=== PATIENT | female | born 1990 | race American Indian/Alaskan Native ===

== ENCOUNTER 2017-07-21 00:28 | Emergency (ER) | payer SELFPAY ==
[2017-07-21] MEDS ORDERED: TYLENOL ONE (01:23)
[2017-07-21 01:28] VITALS: BP 102/67
[2017-07-21 02:00] LABS: Basophils % (Auto) 0.4 % (0.0-1.8); Eosinophils # (Auto) 0.1 K/mm3 (0.0-0.4); Eosinophils % (Auto) 0.6 % (0.0-4.3); Hematocrit 37.3 % (30.3-42.9); Hemoglobin 11.8 gm/dl (10.1-14.3); Lymphocytes # (Auto) 2.8 K/mm3 (1.2-5.4); Lymphocytes % (Auto) 27.6 % (13.4-35.0); Mean Corpuscular HGB Conc 32 % (30-34); Monocytes # (Auto) 0.6 K/mm3 (0.0-0.8); Platelet Count 336 K/mm3 (140-440)
[2017-07-21 02:02] LABS: Mean Corpuscular Hemoglobin 21 pg (28-32); Mean Corpuscular Volume 67 fl (79-97)
[2017-07-21 02:16] LABS: Alanine Aminotransferase 15 units/L (7-56); Albumin 4.1 g/dL (3.9-5); BUN/Creatinine Ratio 20; Blood Urea Nitrogen 10 mg/dL (7-17); Calcium 8.5 mg/dL (8.4-10.2); Hemolysis Index 0; Lipase 16 units/L (13-60)
== END 2017-07-21 03:03 | disposition left against medical advice (07) ==
LOC: ED 00:28
DX: R07.9 Chest pain, unspecified (principal); Z53.21 Procedure and treatment not carried out due to patient leaving prior to being seen by health care provider
CPT/HCPCS: 36415; 80053; 83690; 84484; 84703; 85025; 93005; 93010

== ENCOUNTER 2018-12-31 10:31 | Emergency (ER) | payer MEDICAID ==
[2018-12-31 11:29] LABS: Bacteria,Urine 1+ /HPF (Negative); Bilirubin,Urine NEG (Negative); Blood,Urine NEG (Negative); Color,Urine Yellow (Yellow); Protein,Urine <15 mg/dL mg/dL (Negative); Urobilinogen,Urine < 2.0 mg/dL (<2.0)
[2018-12-31 11:30] LABS: HCG Qualitative,Urine Negative (Negative)
[2018-12-31 11:41] LABS: Basophils # (Auto) 0.1 K/mm3 (0.0-0.1); Basophils % (Auto) 0.6 % (0.0-1.8); Eosinophils # (Auto) 0.1 K/mm3 (0.0-0.4); Eosinophils % (Auto) 0.7 % (0.0-4.3); Lymphocytes # (Auto) 2.6 K/mm3 (1.2-5.4); Mean Corpuscular HGB Conc 31 % (30-34); Mean Corpuscular Volume 71 fl (79-97); Monocytes # (Auto) 0.5 K/mm3 (0.0-0.8); Monocytes % (Auto) 5.3 % (0.0-7.3); Platelet Count 324 K/mm3 (140-440); Red Blood Count 5.36 M/mm3 (3.65-5.03); Red Cell Distribution Width 14.6 % (13.2-15.2)
[2018-12-31 11:42] LABS: Hematocrit 38.2 % (30.3-42.9); Hemoglobin 11.6 gm/dl (10.1-14.3)
[2018-12-31 12:22] LABS: Alanine Aminotransferase 12 units/L (7-56); Albumin 4.3 g/dL (3.9-5); BUN/Creatinine Ratio 35; Blood Urea Nitrogen 14 mg/dL (7-17); Calcium 9.2 mg/dL (8.4-10.2); Hemolysis Index 1
[2018-12-31] MEDS ORDERED: ALUM-MAG HYDROXIDE-SIMETHICONE 200-200-20MG/5ML ORAL LIQD 30 ML PO ONE (13:11)
[2018-12-31] MEDS ORDERED: HYDROcodone/ACETAMINOPHEN 5-325 MG TAB PO ONE (13:12)
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
--- NOTE | 2018-12-31 14:30 | Cat Scan Report ---
CT ABDOMEN AND PELVIS WITHOUT CONTRAST INDICATION / CLINICAL INFORMATION: left flank pain. TECHNIQUE: Axial CT images were obtained through the abdomen and pelvis without IV contrast. All CT scans at [facility] location are performed using CT dose reduction for ALARA by means of automated exposure control. COMPARISON: CT scan dated 02/23/2018 FINDINGS: LOWER CHEST: No significant abnormality. LIVER: No significant abnormality. GALLBLADDER: No significant abnormality. BILE DUCTS: No significant abnormality. PANCREAS: No significant abnormality. SPLEEN: No significant abnormality. ADRENALS: No significant abnormality. RIGHT KIDNEY and URETER: No significant abnormality. LEFT KIDNEY and URETER: No significant abnormality. STOMACH and SMALL BOWEL: No significant abnormality. COLON: There is a moderate amount of stool noted throughout the colon APPENDIX: No significant abnormality. PERITONEUM: No free fluid. No free air. No fluid collection. LYMPH NODES: No significant adenopathy. AORTA and ARTERIES: No significant abnormality. IVC and VEINS: No significant abnormality. URINARY BLADDER: No significant abnormality. REPRODUCTIVE ORGANS: Dermoid is again noted in the left ovary. This appears unchanged exam. Uterus ap pears unchanged ADDITIONAL FINDINGS: None. SKELETAL SYSTEM: No significant abnormality. IMPRESSION: 1. Left ovarian dermoid appears unchanged compared to previous study. 2. Moderate amount stool in the colon raising the possibility of constipation. 3. There is no obstruction, inflammation, or free air. There are no abnormal collections. There are n o renal or ureteral calculi. There is no hydronephrosis. Signer Name: Ted Spangler MD Signed: 12/31/2018 2:25 PM Workstation Name: [id number]
[2018-12-31 15:14] VITALS: BP 107/66
== END 2018-12-31 15:15 | disposition home or self-care (01) ==
LOC: ED 10:31
DX: N83.202 Unspecified ovarian cyst, left side (principal); K59.00 Constipation, unspecified; N30.90 Cystitis, unspecified without hematuria; G43.909 Migraine, unspecified, not intractable, without status migrainosus; Z88.5 Allergy status to narcotic agent; Z79.899 Other long term (current) drug therapy
CPT/HCPCS: 36415; 74176; 80053; 81001; 81025; 85025; 99284

== ENCOUNTER 2019-01-14 22:23 | Emergency (ER) | payer MEDICAID ==
[2019-01-14 22:37] VITALS: BP 111/71
[2019-01-15] MEDS ORDERED: BANOPHEN PO ONE (00:06)
[2019-01-15] MEDS ORDERED: SOLU-Medrol IM ONE (00:06)
[2019-01-15] MEDS ORDERED: PEPCID PO ONE (00:06)
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
== END 2019-01-15 01:26 | disposition home or self-care (01) ==
LOC: ED 22:23
DX: L50.8 Other urticaria (principal); L29.9 Pruritus, unspecified; Z87.442 Personal history of urinary calculi; Z79.899 Other long term (current) drug therapy; Z91.038 Other insect allergy status; Z88.6 Allergy status to analgesic agent
CPT/HCPCS: 96372; 99282; J2930; Q0163

== ENCOUNTER 2019-04-28 08:56 | Emergency (ER) | payer MEDICAID ==
[2019-04-28] MEDS ORDERED: ACETAMINOPHEN 325 MG TAB PO ONE (09:05)
[2019-04-28] MEDS ORDERED: ACETAMINOPHEN 325 MG/10.15 ML ORAL LIQD UNIT DOSE PO ONE (09:07)
[2019-04-28] MEDS ORDERED: ACETAMINOPHEN 325 MG/10.15 ML ORAL LIQD UNIT DOSE ONE (09:10)
[2019-04-28] MEDS ORDERED: SODIUM CHLORIDE 0.9% 1000 ML 1,000 ML IV ONE (10:25)
[2019-04-28] MEDS ORDERED: ONDANSETRON 4 MG/2 ML INJ IV ONE (10:25)
[2019-04-28] MEDS ORDERED: MORPHINE 4 MG/1 ML INJ IV ONE ×2 (10:25→12:21)
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
[2019-04-28 11:26] LABS: Basophils % (Auto) 0.4 % (0.0-1.8); Eosinophils % (Auto) 0.2 % (0.0-4.3); Hematocrit 34.7 % (30.3-42.9); Hemoglobin 10.9 gm/dl (10.1-14.3); Lymphocytes # (Auto) 0.5 K/mm3 (1.2-5.4); Lymphocytes % (Auto) 4.3 % (13.4-35.0); Mean Corpuscular HGB Conc 31 % (30-34); Monocytes # (Auto) 0.9 K/mm3 (0.0-0.8); Monocytes % (Auto) 8.1 % (0.0-7.3); Platelet Count 279 K/mm3 (140-440); Red Blood Count 4.97 M/mm3 (3.65-5.03); Red Cell Distribution Width 14.1 % (13.2-15.2)
[2019-04-28 11:28] LABS: Mean Corpuscular Volume 70 fl (79-97)
[2019-04-28 11:49] LABS: Alanine Aminotransferase 11 units/L (7-56); Albumin 3.9 g/dL (3.9-5); BUN/Creatinine Ratio 17; Blood Urea Nitrogen 10 mg/dL (7-17); Calcium 9.1 mg/dL (8.4-10.2); Hemolysis Index 3
[2019-04-28 12:28] LABS: Bacteria,Urine 1+ /HPF (Negative); Bilirubin,Urine NEG (Negative); Blood,Urine SM (Negative); Color,Urine Yellow (Yellow); Mucus,Urine 2+ /HPF
[2019-04-28 12:29] LABS: HCG Qualitative,Urine Negative (Negative); WBC,Urine > 182.0 /HPF (0.0-6.0)
[2019-04-28] MEDS ORDERED: cefTRIAXone/NS 2 GM/100 ML 2 GM/100 ML BAG IV ONE (12:35)
--- NOTE | 2019-04-28 13:58 | Cat Scan Report ---
CT ABDOMEN AND PELVIS WITHOUT CONTRAST INDICATION: Right lower quadrant and right flank pain. Fever. History of kidney stones. COMPARISON: CT abdomen and pelvis without contrast from 12/31/2018. TECHNIQUE: Axial, coronal and sagittal CT imaging of the abdomen and pelvis was performed without co ntrast. Lack of intravenous contrast limits evaluation of the vascular and solid organs. All CT sca ns at this location are performed using CT dose reduction for ALARA by means of automated exposure co ntrol. FINDINGS: LOWER CHEST: No significant abnormality. LIVER: No significant abnormality. BILIARY: No significant abnormality. PANCREAS: No significant abnormality. SPLEEN: No significant abnormality. ADRENALS: No significant abnormality. KIDNEYS AND URETERS: No significant abnormality. GI TRACT: No significant abnormality of the stomach, small bowel or colon. Unremarkable appendix. PERITONEUM: No free fluid. No free air. No fluid collection. LYMPH NODES: No significant adenopathy. VASCULATURE: No significant abnormality. URINARY BLADDER: No significant abnormality. REPRODUCTIVE ORGANS: A left ovarian dermoid has not significantly changed. No additional significant abnormality. ADDITIONAL FINDINGS: None. SKELETAL SYSTEM: No significant abnormality. IMPRESSION: 1. No acute abnormality of the abdomen or pelvis. 2. No renal stones are identified. 3. Additional findings as above. Signer Name: Damian Shin MD Signed: 04/28/2019 1:54 PM Workstation Name: [id number]
[2019-04-28 14:23] VITALS: BP 105/69
== END 2019-04-28 14:35 | disposition home or self-care (01) ==
LOC: ED 08:56
DX: N10 Acute pyelonephritis (principal); G43.909 Migraine, unspecified, not intractable, without status migrainosus; Z79.899 Other long term (current) drug therapy; Z88.6 Allergy status to analgesic agent
CPT/HCPCS: 36415; 74176; 80053; 81001; 81025; 83690; 85025; 87400; 96361; 96365; 96375; 96376; 99284; J0696; J2270; J2405; J7030

== ENCOUNTER 2019-04-29 07:01 | Emergency (ER) | payer MEDICAID ==
[2019-04-29] MEDS ORDERED: ONDANSETRON 4 MG/2 ML INJ IV ONE (08:04)
[2019-04-29] MEDS ORDERED: MORPHINE 2 MG/1 ML INJ IV ONE (08:04)
[2019-04-29] MEDS ORDERED: SODIUM CHLORIDE 0.9% 1000 ML 1,000 ML IV ONE (08:04)
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
[2019-04-29 09:55] VITALS: BP 105/73
== END 2019-04-29 10:29 | disposition home or self-care (01) ==
LOC: ED 07:01
DX: B34.9 Viral infection, unspecified (principal); N30.90 Cystitis, unspecified without hematuria; G43.909 Migraine, unspecified, not intractable, without status migrainosus; Z98.890 Other specified postprocedural states; Z88.6 Allergy status to analgesic agent; Z79.899 Other long term (current) drug therapy
CPT/HCPCS: 96361; 96374; 96375; 99282; J2270; J2405; J7030

== ENCOUNTER 2019-06-05 16:15 | Emergency (ER) | payer MEDICAID ==
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
[2019-06-05 17:26] LABS: Basophils % (Auto) 0.5 % (0.0-1.8); Eosinophils % (Auto) 0.2 % (0.0-4.3); Hematocrit 39.3 % (30.3-42.9); Hemoglobin 12.1 gm/dl (10.1-14.3); Lymphocytes # (Auto) 2.4 K/mm3 (1.2-5.4); Lymphocytes % (Auto) 25.1 % (13.4-35.0); Mean Corpuscular HGB Conc 31 % (30-34); Monocytes # (Auto) 0.6 K/mm3 (0.0-0.8); Monocytes % (Auto) 6.1 % (0.0-7.3); Platelet Count 322 K/mm3 (140-440); Red Blood Count 5.64 M/mm3 (3.65-5.03)
[2019-06-05 17:29] LABS: Mean Corpuscular Volume 70 fl (79-97)
[2019-06-05 17:38] LABS: Alanine Aminotransferase 11 units/L (7-56); Albumin 4.5 g/dL (3.9-5); BUN/Creatinine Ratio 24; Blood Urea Nitrogen 12 mg/dL (7-17); Calcium 9.4 mg/dL (8.4-10.2); Hemolysis Index 6
[2019-06-05 17:39] LABS: Bilirubin,Direct < 0.2 mg/dL (0-0.2)
[2019-06-05] MEDS ORDERED: HYDROcodone/ACETAMINOPHEN 5-325 MG TAB PO ONE (18:23)
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
[2019-06-05 20:14] VITALS: BP 119/80
== END 2019-06-05 20:14 | disposition home or self-care (01) ==
LOC: ED 16:15
DX: S39.012A Strain of muscle, fascia and tendon of lower back, initial encounter (principal); S16.1XXA Strain of muscle, fascia and tendon at neck level, initial encounter; S20.212A Contusion of left front wall of thorax, initial encounter; G43.909 Migraine, unspecified, not intractable, without status migrainosus; Z98.890 Other specified postprocedural states; Z79.899 Other long term (current) drug therapy; Z88.6 Allergy status to analgesic agent; W30.81XA Contact with agricultural transport vehicle in stationary use, initial encounter; Y93.89 Activity, other specified; Y92.410 Unspecified street and highway as the place of occurrence of the external cause; Y99.8 Other external cause status
CPT/HCPCS: 36415; 72040; 72100; 80048; 80076; 83690; 84703; 85025

== ENCOUNTER 2019-09-30 17:01 | Emergency (ER) | payer MEDICAID ==
[2019-09-30 17:25] VITALS: BP 117/65
--- NOTE | 2019-09-30 18:35 | Emergency Department Report ---
Chief Complaint: Allergic Reaction Stated Complaint: ALLERGIC REACTION - HPI History of Present Illness: 28-year-old -Luxembourger female presents to the emergency room complaining of a rash under her breasts bilateral right worse than left hand red lesions on her lower extremities that started today. Patient reports that the itching and painful. - Exam Vital Signs: Vital Signs 09/30/19 17:23 Temperature 98.8 F Pulse Rate 86 Respiratory 16 Rate Blood Pressure 117/65 [Left] O2 Sat by Pulse 100 Oximetry Physical Exam: Patient is alert and oriented x3 no acute distress Bilateral breast underneath erythematous right breast excoriated and tenderness MSE screening note: Focused history and physical exam performed. Due to findings the following was ordered: 28-year-old -[place]uxembour[place] female presents to the emergency room complaining of a rash under her breasts bilateral right worse than left hand red lesions on her lower extremities that started today. Patient reports that the itching and painful. Patient does admit she just put on a brand-new bra today. Recommend to use [id number] jock itch powder under the breasts and she can take Benadryl for the lesions and to follow-up with her primary care provider ED Disposition for MSE Disposition: Z-07 MED SCREENING EXAM-LEFT Is pt being admited?: No Does the pt Need Aspirin: No Condition: Stable Additional Instructions: Recommend [id number] jock itch powder under the breasts and Benadryl to follow-up with the primary care provider Referrals: NITIN RODRIGUEZ MD [Staff Physician] - 3-5 Days Forms: Work/School Release Form(ED)
== END 2019-09-30 18:41 | disposition left against medical advice (07) ==
LOC: ED 17:01
DX: R21 Rash and other nonspecific skin eruption (principal); Z53.21 Procedure and treatment not carried out due to patient leaving prior to being seen by health care provider

== ENCOUNTER 2019-10-24 12:26 | Emergency (ER) | payer MEDICAID ==
--- NOTE | 2019-10-24 14:37 | Emergency Department Report ---
Blank Doc - Documentation Documentation: 28-year-old female that presents with n/v, body aches, fever, and mild SOB. This initial assessment/diagnostic orders/clinical plan/treatment(s) is/are subject to change based on patient's health status, clinical progression and re- assessment by fellow clinical providers in the ED. Further treatment and workup at subsequent clinical providers discretion. Patient/guardians urged not to elope from the ED as their condition may be serious if not clinically assessed and managed. Initial orders include: 1- Patient sent to [facility] for further evaluation and treatment 2- labs 3- CXR
[2019-10-24 14:53] LABS: Basophils % (Auto) 0.4 % (0.0-1.8); Eosinophils % (Auto) 0.2 % (0.0-4.3); Hematocrit 42.3 % (30.3-42.9); Hemoglobin 13.3 gm/dl (10.1-14.3); Lymphocytes # (Auto) 0.6 K/mm3 (1.2-5.4); Lymphocytes % (Auto) 8.1 % (13.4-35.0); Mean Corpuscular HGB Conc 31 % (30-34); Mean Corpuscular Volume 71 fl (79-97); Monocytes # (Auto) 0.9 K/mm3 (0.0-0.8); Monocytes % (Auto) 11.7 % (0.0-7.3); Platelet Count 289 K/mm3 (140-440); Red Cell Distribution Width 14.5 % (13.2-15.2)
[2019-10-24 15:17] LABS: Alanine Aminotransferase 19 units/L (7-56); Albumin 4.5 g/dL (3.9-5); BUN/Creatinine Ratio 15; Blood Urea Nitrogen 9 mg/dL (7-17); Calcium 9.3 mg/dL (8.4-10.2); Hemolysis Index 24
--- NOTE | 2019-10-24 16:16 | XRay Report ---
CHEST 2 VIEWS INDICATION / CLINICAL INFORMATION: fever/cough. COMPARISON: Rib x-rays on 06/05/2019. FINDINGS: SUPPORT DEVICES: None. HEART / MEDIASTINUM: No significant abnormality. LUNGS / PLEURA: No significant pulmonary or pleural abnormality. No pneumothorax. ADDITIONAL FINDINGS: No significant additional findings. IMPRESSION: 1. No acute findings. Signer Name: Alfred Nielsen MD Signed: 10/24/2019 4:11 PM Workstation Name: [id number]
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
[2019-10-24 21:59] LABS: Bacteria,Urine 1+ /HPF (Negative); Bilirubin,Urine NEG (Negative); Blood,Urine SM (Negative); Color,Urine Yellow (Yellow); Mucus,Urine 2+ /HPF; Protein,Urine <15 mg/dL mg/dL (Negative); Urobilinogen,Urine < 2.0 mg/dL (<2.0)
[2019-10-24] MEDS ORDERED: ACETAMINOPHEN 500 MG TAB PO ONE (22:05)
[2019-10-24] MEDS ORDERED: SODIUM CHLORIDE 0.9% 500 ML 500 ML IV ONE (22:05)
[2019-10-24] MEDS ORDERED: ONDANSETRON 4 MG/2 ML INJ IV ONE (22:21)
[2019-10-24] MEDS ORDERED: ONDANSETRON 4 MG/2 ML INJ ONE (22:23)
[2019-10-25 00:03] VITALS: BP 100/60
== END 2019-10-25 00:15 | disposition home or self-care (01) ==
LOC: ED 12:26
DX: B34.9 Viral infection, unspecified (principal); N39.0 Urinary tract infection, site not specified; G43.909 Migraine, unspecified, not intractable, without status migrainosus; Z20.828 Contact with and (suspected) exposure to other viral communicable diseases; Z79.899 Other long term (current) drug therapy; Z88.8 Allergy status to other drugs, medicaments and biological substances
CPT/HCPCS: 36415; 71046; 80053; 81001; 83690; 84703; 85025; 96361; 96374; 99284; J2405; J7040

== ENCOUNTER 2020-04-09 07:46 | Emergency (ER) | payer MEDICAID ==
--- NOTE | 2020-04-09 07:53 | Emergency Department Report ---
Blank Doc - Documentation Documentation: 29-year-old female that emerge department complaining of having missed her per iod last month and having a positive home test presents emerged department complaining of vaginal spotting and pelvic cramping and pain which radiates to her lower back of unknown etiology reports no fevers chills or sweats but does have some nausea and vomiting and states that she may have tasted a little blood in her vomit. This initial assessment/diagnostic orders/clinical plan/treatment(s) is/are subject to change based on patients health status, clinical progression and re- assessment by fellow clinical providers in the ED. Further treatment and workup at subsequent clinical providers discretion. Patient/guardian urged not to elope from the ED as their condition may be serious if not clinically assessed and managed. Initial orders include: Plan to include labs, urinalysis, ultrasound to evaluate the and viability
[2020-04-09 08:24] LABS: Bacteria,Urine 1+ /HPF (Negative); Bilirubin,Urine NEG (Negative); Blood,Urine NEG (Negative); Color,Urine Yellow (Yellow); Mucus,Urine 2+ /HPF; Protein,Urine <15 mg/dL mg/dL (Negative)
[2020-04-09 09:18] LABS: Basophils # (Auto) 0.1 K/mm3 (0.0-0.1); Basophils % (Auto) 0.5 % (0.0-1.8); Eosinophils % (Auto) 0.4 % (0.0-4.3); Hematocrit 36.7 % (30.3-42.9); Hemoglobin 11.5 gm/dl (10.1-14.3); Lymphocytes # (Auto) 2.2 K/mm3 (1.2-5.4); Lymphocytes % (Auto) 22.8 % (13.4-35.0); Mean Corpuscular HGB Conc 31 % (30-34); Mean Corpuscular Volume 72 fl (79-97); Monocytes # (Auto) 0.5 K/mm3 (0.0-0.8); Monocytes % (Auto) 5.6 % (0.0-7.3); Platelet Count 281 K/mm3 (140-440); Red Blood Count 5.12 M/mm3 (3.65-5.03); Red Cell Distribution Width 14.4 % (13.2-15.2)
--- NOTE | 2020-04-09 12:01 | Ultrasound Report ---
FIRSTTRIMESTER OBSTETRIC ULTRASOUND HISTORY: Provided clinical history of vaginal bleeding. COMPARISON: None. TECHNIQUE: Routine transvaginal OB ultrasound performed. FINDINGS: Uterus: Measures 7.8 x 5.3 x 7.1 cm. Small left uterine fibroid measuring up to 3 cm. Gestational Sac: Well-defined oval shape and intrauterine in location. Measures 1.7 cm with estimate d gestational age of 6 weeks and 4 days. Yolk Sac: Normal in appearance. Fetus/Embryo: [place]-rump length of 0.2 cm, too small for accurate gestational age at this time. Embryonic/ cardiac activity: 91bpm Placenta: Too small for evaluation. Amniotic fluid volume: Subjectively appropriate for gestational age. Ovaries: The right ovary has been surgically removed. The left ovary demonstrates a 1.[address] and is otherwise unremarkable in appearance. No definite corpus luteum is identified. Additional findings: Small cystic area adjacent to the scar. IMPRESSION 1. Early live intrauterine with estimated gestational age of 6 weeks and 4 days and h eart rate of 91 suggesting bradycardia. Recommend close continued follow-up. 2. Additional findings as above. Signer Name: Larry Ribera MD Signed: 04/09/2020 11:57 AM Workstation Name: [id number]
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
--- NOTE | 2020-04-09 14:04 | Ultrasound Report ---
FIRST TRIMESTER OBSTETRIC ULTRASOUND HISTORY: Provided clinical history of vaginal bleeding. COMPARISON: None. TECHNIQUE: Routine transvaginal OB ultrasound performed. FINDINGS: Uterus: Measures 7.8 x 5.3 x 7.1 cm. Small left uterine fibroid measuring up to 3 cm. Gestational Sac: Well-defined oval shape and intrauterine in location. Measures 1.7 cm with estimated gestational age of 6 weeks and 4 days. Yolk Sac: Normal in appearance. Fetus/Embryo: [place]-rump length of 0.2 cm, too small for accurate gestational age at this time. Embryonic/ cardiac activity: 91bpm Placenta: Too small for evaluation. Amniotic fluid volume: Subjectively appropriate for gestational age. Ovaries: The right ovary has been surgically removed. The left ovary demonstrates a 1.9 cm simple cys t and is otherwise unremarkable in appearance. No definite corpus luteum is identified. Additional findings: Small cystic area adjacent to the scar. IMPRESSION: 1. Early live intrauterine with estimated gestational age of 6 weeks and 4 days and h eart rate of 91 suggesting bradycardia. Recommend close continued follow-up. 2. Additional findings as above. Signer Name: Larry Ribera MD Signed: 04/09/2020 2:00 PM Workstation Name: [id number]
== END 2020-04-09 13:05 | disposition home or self-care (01) ==
LOC: ED 07:46
DX: O20.0 Threatened abortion (principal); Z79.899 Other long term (current) drug therapy; Z88.8 Allergy status to other drugs, medicaments and biological substances; Z98.890 Other specified postprocedural states; Z87.442 Personal history of urinary calculi; Z3A.01 Less than 8 weeks gestation of pregnancy
CPT/HCPCS: 36415; 76801; 76817; 81001; 84702; 85025; 86900; 86901; 87086

== ENCOUNTER 2020-04-16 16:53 | Emergency (ER) | payer MEDICAID ==
[2020-04-16 18:29] VITALS: BP 105/72
[2020-04-16] MEDS ORDERED: SODIUM CHLORIDE 0.9% 1000 ML 1,000 ML IV ONE (19:43)
[2020-04-16] MEDS ORDERED: diphenhydrAMINE 50 MG/ML VIAL IV ONE (19:46)
[2020-04-16] MEDS ORDERED: FAMOTIDINE 20 MG/2 ML INJ IV ONE (19:46)
[2020-04-16] MEDS ORDERED: METOCLOPRAMIDE 10 MG/2 ML INJ IV ONE (19:46)
[2020-04-16 20:11] LABS: Basophils # (Auto) 0.1 K/mm3 (0.0-0.1); Basophils % (Auto) 0.5 % (0.0-1.8); Eosinophils % (Auto) 0.1 % (0.0-4.3); Hematocrit 41.1 % (30.3-42.9); Lymphocytes # (Auto) 1.9 K/mm3 (1.2-5.4); Lymphocytes % (Auto) 15.3 % (13.4-35.0); Mean Corpuscular HGB Conc 32 % (30-34); Mean Corpuscular Volume 71 fl (79-97); Monocytes # (Auto) 0.8 K/mm3 (0.0-0.8); Monocytes % (Auto) 6.3 % (0.0-7.3); Platelet Count 318 K/mm3 (140-440); Red Blood Count 5.75 M/mm3 (3.65-5.03); Red Cell Distribution Width 14.6 % (13.2-15.2)
[2020-04-16 20:25] LABS: Alanine Aminotransferase 12 units/L (7-56); Albumin 4.5 g/dL (3.9-5); Blood Urea Nitrogen 9 mg/dL (7-17); Calcium 9.9 mg/dL (8.4-10.2); Hemolysis Index 8
[2020-04-16 20:26] LABS: BUN/Creatinine Ratio 18
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
--- NOTE | 2020-04-17 00:29 | Ultrasound Report ---
ULTRASOUND OBSTETRIC INDICATION / CLINICAL INFORMATION: , pelvic pain. Clinical Gestational Age (GA) in weeks, days: 7 weeks 4 days TECHNIQUE: Transabdominal. COMPARISON: 04/09/2020 prior ultrasound FINDINGS: GESTATIONAL SAC: Well-defined oval shape and intrauterine in location. YOLK SAC: No significant abnormality. EMBRYO/FETUS: No significant abnormality. - [place]-Rump Length = 0.5 cm = 6 weeks, 2 days - Heart Rate, beats per minute (if present) = 138 ADNEXA: Right ovary is surgically absent. 1.6 cm hypoechoic mass within the left ovary is most likely is corpus luteal cyst. FREE FLUID: None. ADDITIONAL FINDINGS: Again noted is 3.6 cm uterine fibroid. IMPRESSION: 1. Single, living intrauterine with estimated sonographic age of 6 weeks, 2 days. Please n ote that gestational age was calculated on gestational sac measurement on recent ultrasound 04/09/2020. Gestational age is calculated with crown-rump length measurement on today's exam which is much more accurate. Signer Name: Clara Borrero MD Signed: 04/17/2020 12:25 AM Workstation Name: [id number]
== END 2020-04-17 01:20 | disposition home or self-care (01) ==
LOC: ED 16:53
DX: O20.0 Threatened abortion (principal); O21.8 Other vomiting complicating pregnancy; G43.909 Migraine, unspecified, not intractable, without status migrainosus; Z3A.01 Less than 8 weeks gestation of pregnancy; Z98.890 Other specified postprocedural states; Z79.2 Long term (current) use of antibiotics; Z79.899 Other long term (current) drug therapy; Z88.8 Allergy status to other drugs, medicaments and biological substances
CPT/HCPCS: 36415; 76801; 80053; 83690; 84702; 85025; 96361; 96374; 96375; 99284; J1200; J2765; J7030

== ENCOUNTER 2020-04-18 22:33 | Emergency (ER) | payer MEDICAID ==
[2020-04-18 23:17] VITALS: BP 110/71
[2020-04-18] MEDS ORDERED: SODIUM CHLORIDE 0.9% 1000 ML 1,000 ML IV ONE (23:32)
[2020-04-18] MEDS ORDERED: FAMOTIDINE 20 MG/2 ML INJ IV ONE (23:33)
--- NOTE | 2020-04-18 23:35 | Emergency Department Report ---
Blank Doc - Documentation Documentation: Patient's chart reviewed while patient was in the waiting room. Patient returns for repeat quant but also has continued nausea, vomiting and abdominal pain. Patient was seen her on April 09 as well as April 16 with similar symptoms. Patient was diagnosed with threatened miscarriage on April 09 visit but had a UA that had positive white cells. During patient was diagnosed with threatened miscarriage with nausea vomiting in . Urine culture resulted with Klebsiella pneumonia and sensitivities noted under outside scanned reports. Patient has not been treated for UTI with either ED visits as per medical record therefore I ordered complete lab set and repeat UA since patient continues to have nausea, vomiting, vaginal bleed and abdominal pain as per triage note. Vital signs do not indicate sepsis at this time.
[2020-04-18] MEDS ORDERED: PROCHLORPERAZINE EDISYLATE 10 MG/2 ML VIAL IV ONE (23:53)
[2020-04-19 00:48] LABS: Alanine Aminotransferase 9 units/L (7-56); Albumin 4.2 g/dL (3.9-5); Blood Urea Nitrogen 12 mg/dL (7-17)
[2020-04-19 01:02] LABS: BUN/Creatinine Ratio 24
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
[2020-04-19 01:14] LABS: Basophils % (Auto) 0.3 % (0.0-1.8); Eosinophils % (Auto) 0.3 % (0.0-4.3); Hematocrit 37.5 % (30.3-42.9); Hemoglobin 11.7 gm/dl (10.1-14.3); Lymphocytes # (Auto) 2.1 K/mm3 (1.2-5.4); Lymphocytes % (Auto) 18.6 % (13.4-35.0); Mean Corpuscular HGB Conc 31 % (30-34); Mean Corpuscular Volume 72 fl (79-97); Monocytes # (Auto) 0.7 K/mm3 (0.0-0.8); Monocytes % (Auto) 6.2 % (0.0-7.3); Platelet Count 294 K/mm3 (140-440); Red Cell Distribution Width 14.4 % (13.2-15.2)
[2020-04-19 01:19] LABS: Hemolysis Index 7
[2020-04-19 01:38] LABS: Bacteria,Urine 1+ /HPF (Negative); Bilirubin,Urine NEG (Negative); Blood,Urine NEG (Negative); Color,Urine Yellow (Yellow); Mucus,Urine 1+ /HPF; Protein,Urine <15 mg/dL mg/dL (Negative)
[2020-04-19] MEDS ORDERED: NITROFURANTOIN MONOHYD/M-CRYST 100 MG CAP PO ONE (01:43)
[2020-04-19 01:53] LABS: Calcium 9.7 mg/dL (8.4-10.2)
--- NOTE | 2020-04-19 07:37 | Ultrasound Report ---
ULTRASOUND OBSTETRIC INDICATION / CLINICAL INFORMATION: , abd pain. Vaginal bleeding Clinical Gestational Age (GA) in weeks, days: 6 weeks 5 days TECHNIQUE: Transabdominal. COMPARISON: 04/16/2020 FINDINGS: GESTATIONAL SAC: Well-defined oval shape and intrauterine in location. YOLK SAC: No significant abnormality. EMBRYO/FETUS: No significant abnormality. - [place]-Rump Length = 0.77 cm = 6 weeks, 5 days - Heart Rate, beats per minute (if present) = 148 ADNEXA: Right ovary has been surgically removed. The left ovary has a normal sonographic appearance. FREE FLUID: None. ADDITIONAL FINDINGS: Uterine fibroid is again noted measuring 3.5 cm in greatest diameter. IMPRESSION: 1. Single, living intrauterine with estimated sonographic age of 6 weeks, 5 days. Signer Name: Clara Borrero MD Signed: 04/19/2020 2:07 AM Workstation Name: [id number]
== END 2020-04-19 03:36 | disposition home or self-care (01) ==
LOC: ED 22:33
DX: O23.41 Unspecified infection of urinary tract in pregnancy, first trimester (principal); O21.8 Other vomiting complicating pregnancy; G43.909 Migraine, unspecified, not intractable, without status migrainosus; Z3A.01 Less than 8 weeks gestation of pregnancy; Z98.890 Other specified postprocedural states; Z79.2 Long term (current) use of antibiotics; Z79.899 Other long term (current) drug therapy; Z88.8 Allergy status to other drugs, medicaments and biological substances
CPT/HCPCS: 36415; 76801; 80053; 81001; 84702; 85025; 96361; 96374; 96375; 99284; J0780; J7030

== ENCOUNTER 2020-04-27 13:58 | Emergency (ER) | payer MEDICAID ==
--- NOTE | 2020-04-27 14:09 | Event Note ---
ED Screening Note Date of service: 04/27/20 Time: 14:08 ED Screening Note: c/o vomiting, abd pain, and spotting 9 weeks seen here several times this month This initial assessment/diagnostic orders/clinical plan/treatment(s) is/are subject to change based on patients health status, clinical progression and re- assessment by fellow clinical providers in the ED. Further treatment and workup at subsequent clinical providers discretion. Patient/guardian urged not to elope from the ED as their condition may be serious if not clinically assessed and managed. Initial orders include: labs US
[2020-04-27 14:38] LABS: Bacteria,Urine 1+ /HPF (Negative); Bilirubin,Urine NEG (Negative); Blood,Urine NEG (Negative); Color,Urine Yellow (Yellow); Mucus,Urine 3+ /HPF; Protein,Urine <15 mg/dL mg/dL (Negative)
[2020-04-27 15:01] LABS: Amorphous Crystals,Urine Few
[2020-04-27 15:05] LABS: Ictotest,Urine Negative (Negative)
--- NOTE | 2020-04-27 15:53 | Ultrasound Report ---
ULTRASOUND OBSTETRIC Indication: pain, vaginal bleeding, 9 weeks Findings: There is a single, viable intrauterine . [place]-rump length = 1.9 cm = 8 weeks, 3 day(s). heart rate is 179 beats per minute. Right ovary has been removed. The left ovary measures 3.5 cm and contains 2 nodules. There is a 2.1 c m complex heterogeneous nodule likely representing hemorrhagic cyst. There is a 2 cm dermoid in the l eft ovary. This was noted on prior CT scan from 2019 Impression: Single, viable intrauterine with estimated sonographic age of 8 weeks, 3 day(s). Signer Name: Ted Spangler MD Signed: 04/27/2020 3:49 PM Workstation Name: [id number]
[2020-04-27 16:13] LABS: Basophils % (Auto) 0.4 % (0.0-1.8); Eosinophils % (Auto) 0.5 % (0.0-4.3); Hematocrit 39.9 % (30.3-42.9); Hemoglobin 12.5 gm/dl (10.1-14.3); Lymphocytes # (Auto) 1.7 K/mm3 (1.2-5.4); Lymphocytes % (Auto) 15.8 % (13.4-35.0); Mean Corpuscular HGB Conc 31 % (30-34); Mean Corpuscular Volume 72 fl (79-97); Monocytes # (Auto) 0.6 K/mm3 (0.0-0.8); Monocytes % (Auto) 5.4 % (0.0-7.3); Platelet Count 306 K/mm3 (140-440); Red Blood Count 5.55 M/mm3 (3.65-5.03); Red Cell Distribution Width 14.6 % (13.2-15.2)
[2020-04-27 16:36] LABS: Alanine Aminotransferase 10 units/L (7-56); Albumin 4.2 g/dL (3.9-5); Blood Urea Nitrogen 7 mg/dL (7-17); Calcium 9.2 mg/dL (8.4-10.2); Hemolysis Index 14
[2020-04-27 16:46] LABS: BUN/Creatinine Ratio 18
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
[2020-04-27 19:51] VITALS: BP 121/70
== END 2020-04-27 19:53 | disposition home or self-care (01) ==
LOC: ED 13:58
DX: O23.41 Unspecified infection of urinary tract in pregnancy, first trimester (principal); O21.8 Other vomiting complicating pregnancy; O26.891 Other specified pregnancy related conditions, first trimester; H10.9 Unspecified conjunctivitis; R10.2 Pelvic and perineal pain; G43.909 Migraine, unspecified, not intractable, without status migrainosus; Z3A.08 8 weeks gestation of pregnancy; Z98.890 Other specified postprocedural states; Z79.2 Long term (current) use of antibiotics; Z79.899 Other long term (current) drug therapy; Z88.8 Allergy status to other drugs, medicaments and biological substances
CPT/HCPCS: 36415; 76801; 76817; 80053; 81001; 83690; 84702; 85025; 87076; 87086; 87186

== ENCOUNTER 2021-06-29 05:24 | Emergency (ER) | payer MEDICAID ==
[2021-06-29] MEDS ORDERED: ACETAMINOPHEN 325 MG TAB PO ONE (09:16)
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
[2021-06-29 11:25] LABS: Bacteria,Urine 4+ /HPF (Negative); Bilirubin,Urine NEG (Negative); Blood,Urine NEG (Negative); Calcium Oxalate Crystals,Urine 2+; Color,Urine Yellow (Yellow); Mucus,Urine 3+ /HPF; Urobilinogen,Urine < 2.0 mg/dL (<2.0)
--- NOTE | 2021-06-29 13:10 | Ultrasound Report ---
Abdominal ultrasound INDICATION: Abdominal pain FINDINGS: Aorta and IVC appear normal. Liver is unremarkable. Common bile duct measures 3 mm. No gall bladder wall thickening or pericholecystic fluid. Kidneys spleen and pancreas appear normal. IMPRESSION: No acute findings. Signer Name: Fabian Fields MD Signed: 06/29/2021 1:06 PM Workstation Name: [id number]
--- NOTE | 2021-06-29 13:20 | Ultrasound Report ---
Transvaginal and transabdominal OB ultrasound INDICATION: Abdominal pain FINDINGS: Uterus measures 9.1 x 4.8 x 7.0 cm. There is a intrauterine measuring 1 cm measur ing 5 weeks 3 days. No pole is identified this time. Right ovary is been removed. There is additional echogenic structure on the left adnexa with central areas cystic lesion. This are a measures 1.5 x 2.1 x 1.9 cm. Questionable small amount of debris irregularity within the cyst. IMPRESSION: 1. Intrauterine measuring 5 weeks 3 days. No pole is identified 2. Echogenic structure with central cyst within the left adnexa. While this could represent a complex cyst or ectopic could also have this appearance. Follow-up and clinical correlation. Laura nelson notified at 1215 Signer Name: Fabian Fields MD Signed: 06/29/2021 1:16 PM Workstation Name: [id number]
[2021-06-29 14:11] VITALS: BP 101/60
[2021-06-29 14:30] LABS: Basophils % (Auto) 0.5 % (0.0-1.8); Eosinophils % (Auto) 0.4 % (0.0-4.3); Lymphocytes # (Auto) 2.1 K/mm3 (1.2-5.4); Lymphocytes % (Auto) 20.6 % (13.4-35.0); Monocytes # (Auto) 0.6 K/mm3 (0.0-0.8); Monocytes % (Auto) 5.7 % (0.0-7.3)
[2021-06-29 14:44] LABS: Hematocrit 43.4 % (30.3-42.9); Hemoglobin 13.3 gm/dl (10.1-14.3); Mean Corpuscular HGB Conc 31 % (30-34); Mean Corpuscular Volume 73 fl (79-97); Platelet Count 346 K/mm3 (140-440); Red Blood Count 5.92 M/mm3 (3.65-5.03); Red Cell Distribution Width 14.8 % (13.2-15.2)
== END 2021-06-29 14:11 | disposition home or self-care (01) ==
LOC: ED 05:24
DX: O9A.211 Injury, poisoning and certain other consequences of external causes complicating pregnancy, first trimester (principal); O23.41 Unspecified infection of urinary tract in pregnancy, first trimester; S39.011A Strain of muscle, fascia and tendon of abdomen, initial encounter; N83.209 Unspecified ovarian cyst, unspecified side; N39.0 Urinary tract infection, site not specified; G43.909 Migraine, unspecified, not intractable, without status migrainosus; N20.0 Calculus of kidney; Z79.899 Other long term (current) drug therapy; Z98.890 Other specified postprocedural states; V89.2XXA Person injured in unspecified motor-vehicle accident, traffic, initial encounter; Y93.89 Activity, other specified; Y92.89 Other specified places as the place of occurrence of the external cause; Y99.8 Other external cause status
CPT/HCPCS: 36415; 76700; 76801; 76815; 76817; 81001; 84702; 85025; 87076; 87086; 87186; 99282; 99284

== ENCOUNTER 2021-07-17 21:47 | Emergency (ER) | payer MEDICAID, OTHER ==
[2021-07-17] MEDS ORDERED: SODIUM CHLORIDE 0.9% 1000 ML 1,000 ML IV ONE (22:41)
[2021-07-17] MEDS ORDERED: MORPHINE 4 MG/1 ML INJ IV ONE (22:41)
[2021-07-17] MEDS ORDERED: ONDANSETRON 4 MG/2 ML INJ IV ONE (22:46)
[2021-07-17 23:25] LABS: Basophils % (Auto) 0.4 % (0.0-1.8); Eosinophils # (Auto) 0.1 K/mm3 (0.0-0.4); Eosinophils % (Auto) 0.6 % (0.0-4.3); Hematocrit 33.2 % (30.3-42.9); Hemoglobin 10.9 gm/dl (10.1-14.3); Lymphocytes # (Auto) 2.6 K/mm3 (1.2-5.4); Mean Corpuscular HGB Conc 33 % (30-34); Mean Corpuscular Volume 71 fl (79-97); Monocytes # (Auto) 0.7 K/mm3 (0.0-0.8); Monocytes % (Auto) 6.9 % (0.0-7.3); Platelet Count 291 K/mm3 (140-440); Red Blood Count 4.68 M/mm3 (3.65-5.03); Red Cell Distribution Width 13.6 % (13.2-15.2)
[2021-07-17 23:46] LABS: Alanine Aminotransferase 8 units/L (7-56); Albumin 3.9 g/dL (3.9-5); Blood Urea Nitrogen 10 mg/dL (7-17); Calcium 8.4 mg/dL (8.4-10.2); Hemolysis Index 1
[2021-07-18 00:03] LABS: BUN/Creatinine Ratio 33; Bilirubin,Direct < 0.2 mg/dL (0-0.2)
[2021-07-18] MEDS ORDERED: MORPHINE 4 MG/1 ML INJ IV ONE (01:00)
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
--- NOTE | 2021-07-18 01:59 | Ultrasound Report ---
Pelvic ultrasound INDICATION: Pelvic pain. FINDINGS: There is a single living intrauterine measuring about 7 weeks and 0 days. The fet al heart rate measured 162 bpm. The right ovary was not visualized. The left ovary appeared unremarka ble. IMPRESSION: Single living intrauterine , as above. Signer Name: Eliot Marcano MD Signed: 07/18/2021 1:55 AM Workstation Name: [id number]
[2021-07-18 03:14] VITALS: BP 95/68
== END 2021-07-18 03:41 | disposition home or self-care (01) ==
LOC: ED 21:47
DX: O26.891 Other specified pregnancy related conditions, first trimester (principal); R10.32 Left lower quadrant pain; G43.909 Migraine, unspecified, not intractable, without status migrainosus; N20.0 Calculus of kidney; Z98.890 Other specified postprocedural states; Z91.09 Other allergy status, other than to drugs and biological substances; Z3A.01 Less than 8 weeks gestation of pregnancy
CPT/HCPCS: 36415; 76801; 80048; 80076; 83690; 84702; 85025; 96361; 96374; 96375; 96376; 99284; J2270; J2405; J7030

== ENCOUNTER 2021-07-22 09:48 | Emergency (ER) | payer OTHER, MEDICAID ==
[2021-07-22 10:05] VITALS: BP 102/76
[2021-07-22 10:50] LABS: Basophils % (Auto) 0.4 % (0.0-1.8); Eosinophils % (Auto) 0.2 % (0.0-4.3); Hematocrit 38.5 % (30.3-42.9); Hemoglobin 12.9 gm/dl (10.1-14.3); Lymphocytes # (Auto) 1.8 K/mm3 (1.2-5.4); Lymphocytes % (Auto) 17.6 % (13.4-35.0); Mean Corpuscular HGB Conc 34 % (30-34); Mean Corpuscular Volume 70 fl (79-97); Monocytes # (Auto) 0.6 K/mm3 (0.0-0.8); Monocytes % (Auto) 5.7 % (0.0-7.3); Platelet Count 314 K/mm3 (140-440); Red Blood Count 5.48 M/mm3 (3.65-5.03); Red Cell Distribution Width 13.9 % (13.2-15.2)
[2021-07-22 11:16] LABS: Alanine Aminotransferase 9 units/L (7-56); Albumin 4.8 g/dL (3.9-5); Blood Urea Nitrogen 9 mg/dL (7-17); Hemolysis Index 13
[2021-07-22 11:19] LABS: BUN/Creatinine Ratio 23
[2021-07-22] MEDS ORDERED: SODIUM CHLORIDE 0.9% 1000 ML 1,000 ML IV ONE ×2 (13:30→14:35)
[2021-07-22] MEDS ORDERED: ONDANSETRON 4 MG/2 ML INJ IV ONE (13:30)
[2021-07-22] MEDS ORDERED: diphenhydrAMINE 50 MG/ML VIAL IV ONE (14:35)
[2021-07-22] MEDS ORDERED: METOCLOPRAMIDE 10 MG/2 ML INJ IV ONE (14:35)
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
[2021-07-22 14:50] LABS: Bilirubin,Urine NEG (Negative); Blood,Urine NEG (Negative); Color,Urine Yellow (Yellow); Mucus,Urine 3+ /HPF
[2021-07-22] MEDS ORDERED: ACETAMINOPHEN 500 MG TAB PO ONE (15:25)
== END 2021-07-22 18:27 | disposition home or self-care (01) ==
LOC: ED 09:48
DX: O21.9 Vomiting of pregnancy, unspecified (principal); G43.909 Migraine, unspecified, not intractable, without status migrainosus; Z98.890 Other specified postprocedural states; Z88.5 Allergy status to narcotic agent; Z79.899 Other long term (current) drug therapy; Z3A.08 8 weeks gestation of pregnancy
CPT/HCPCS: 36415; 80053; 81001; 83690; 85025; 96361; 96374; 96375; 99283; J1200; J2405; J2765; J7030

== ENCOUNTER 2021-07-27 22:20 | Emergency (ER) | payer OTHER, MEDICAID ==
[2021-07-28] MEDS ORDERED: METOCLOPRAMIDE 10 MG/2 ML INJ IV ONE (02:51)
[2021-07-28] MEDS ORDERED: diphenhydrAMINE 50 MG/ML VIAL IV ONE (02:51)
[2021-07-28] MEDS ORDERED: LACTATED RINGERS 1,000 ML IV ONE (02:52)
[2021-07-28 03:50] LABS: Bilirubin,Urine NEG (Negative); Blood,Urine NEG (Negative); Color,Urine Yellow (Yellow); Hyaline Casts,Urine 2 /LPF; Mucus,Urine 3+ /HPF
[2021-07-28 03:55] LABS: Basophils % (Auto) 0.3 % (0.0-1.8); Eosinophils % (Auto) 0.2 % (0.0-4.3); Hemoglobin 13.8 gm/dl (10.1-14.3); Lymphocytes # (Auto) 2.6 K/mm3 (1.2-5.4); Lymphocytes % (Auto) 23.7 % (13.4-35.0); Mean Corpuscular HGB Conc 31 % (30-34); Mean Corpuscular Volume 72 fl (79-97); Monocytes # (Auto) 0.6 K/mm3 (0.0-0.8); Monocytes % (Auto) 5.7 % (0.0-7.3); Platelet Count 337 K/mm3 (140-440); Red Blood Count 6.09 M/mm3 (3.65-5.03); Red Cell Distribution Width 13.8 % (13.2-15.2)
[2021-07-28 04:05] LABS: Alanine Aminotransferase 12 units/L (7-56); Albumin 5.1 g/dL (3.9-5); Blood Urea Nitrogen 11 mg/dL (7-17); Calcium 10.2 mg/dL (8.4-10.2); Hemolysis Index 7
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
[2021-07-28 04:27] LABS: BUN/Creatinine Ratio 28
[2021-07-28 05:45] VITALS: BP 108/82
--- NOTE | 2021-07-28 10:48 | Electrocardiograph Report ---
[facility] Test Date: 2021-07-27 Test Time: 23:03:04 Pat Name: NADER OLMOS Department: Room: Gender: F Critical Systems Technician: JOSELUIS : 1990 Requested By: LA CAMERON Order Number: [id number] Reading MD: Antonio Olmos Measurements Intervals [place] Rate: 78 P: 48 SD: 170 QRS: 63 QRSD: 78 T: 39 QT: 357 QTc: 408 Interpretive Statements Sinus rhythm No previous ECG available for comparison Electronically Signed On 07-28-2021 10:47:26 EDT by Antonio Olmos
== END 2021-07-28 05:45 | disposition home or self-care (01) ==
LOC: ED 22:20
DX: O21.0 Mild hyperemesis gravidarum (principal); O26.891 Other specified pregnancy related conditions, first trimester; K21.9 Gastro-esophageal reflux disease without esophagitis; G43.909 Migraine, unspecified, not intractable, without status migrainosus; Z98.890 Other specified postprocedural states; Z88.5 Allergy status to narcotic agent; Z79.899 Other long term (current) drug therapy
CPT/HCPCS: 36415; 80053; 81001; 84702; 85025; 93005; 96361; 96374; 96375; 99283; J1200; J2765; J7120

== ENCOUNTER 2021-12-24 09:52 | Emergency (ER) | payer MEDICAID ==
[2021-12-24 10:35] VITALS: BP 98/70
[2021-12-24 13:19] LABS: Hematocrit 41.8 % (30.3-42.9); Hemoglobin 13.2 gm/dl (10.1-14.3); Mean Corpuscular HGB Conc 32 % (30-34); Mean Corpuscular Volume 72 fl (79-97); Platelet Count 306 K/mm3 (140-440); Red Blood Count 5.83 M/mm3 (3.65-5.03); Red Cell Distribution Width 14.1 % (13.2-15.2)
[2021-12-24 13:40] LABS: Alanine Aminotransferase 11 units/L (7-56); Albumin 4.6 g/dL (3.9-5); Blood Urea Nitrogen 8 mg/dL (7-17); Calcium 9.6 mg/dL (8.4-10.2); Hemolysis Index 6
[2021-12-24 13:48] LABS: BUN/Creatinine Ratio 20
[2021-12-24] MEDS ORDERED: ONDANSETRON 4 MG ODT TAB PO ONE (15:01)
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
[2021-12-24 17:35] LABS: Bacteria,Urine 2+ /HPF (Negative); Mucus,Urine 3+ /HPF
[2021-12-24 17:39] LABS: Color,Urine Yellow (Yellow); HCG Qualitative,Urine Positive (Negative); Ictotest,Urine Negative (Negative)
[2021-12-24] MEDS ORDERED: LIDOCAINE-MPF (1%) 10 MG/1 ML VIAL 5 ML INFILTRATI ONE (18:10)
== END 2021-12-24 18:12 | disposition home or self-care (01) ==
LOC: ED 09:52
DX: N39.0 Urinary tract infection, site not specified (principal); Z33.1 Pregnant state, incidental; E16.2 Hypoglycemia, unspecified
CPT/HCPCS: 36415; 80053; 81001; 81025; 83690; 85027; 87086; 96372; 99283; J3490; Q0162